=== PATIENT | male | born 1965 ===

== ENCOUNTER 2016-10-13 14:32 | Emergency (ER) | payer OTHER ==
[2016-10-13 14:55] VITALS: BP 159/99; PULSE 100; RESP 16; TEMP 99.3; O2SAT 98
--- NOTE | 2016-10-13 16:35 | ED PDOC ---
HPI: Skin/Bite Injury Time Seen by Provider: 10/13/16 15:05 Chief Complaint (Nursing): Abnormal Skin Integrity Chief Complaint (Provider): Rash History Per: Patient, Risk Analyst (Shelly Fowler [id number]) History/Exam Limitations: no limitations Onset/Duration Of Symptoms: Days (3) Current Symptoms Are (Timing): Still Present Quality Of Symptoms: Painful, Itching Severity: Moderate Additional Complaint(s): Jose Lima is a 50 y/o male presenting to the ER on 10/13/2016 with a diffuse rash that has been ongoing for three days. Rash, which is describes as pruritic and painful after itching it, and notes it is associated with a tactile fever and headache that was gradual in onset. Patient states this morning he woke up with throat pain, which prompted him to seek medical attention. Patient denies any known history of Chicken Pox, exposure to new allergens, food, lotions, soaps, or detergents. Patient has not taken any medications for his symptoms prior to his arrival. Past Medical History Reviewed: Historical Data (Social), Nursing Documentation, Vital Signs Vital Signs: Last Vital Signs Temp 99.3 F 10/13/16 14:53 Pulse 100 H 10/13/16 14:53 Resp 16 10/13/16 14:53 BP 159/99 H 10/13/16 14:53 Pulse Ox 98 10/13/16 17:21 - Medical History PMH: No Chronic Diseases - Surgical History Surgical History: No Surg Hx - Family History Family History: States: Unknown Family Hx - Social History Current smoker - smoking cessation education provided: No Alcohol: None Drugs: Denies - Home Medications Home Medications: Ambulatory Orders Medication Instructions Recorded Acetaminophen [Tylenol 325mg tab] 975 mg PO TID #20 tab 10/13/16 DiphenhydrAMINE [Benadryl] 25 mg PO QID #25 cap 10/13/16 Ibuprofen [Motrin Tab] 600 mg PO TID #20 tab 10/13/16 - Allergies Allergies/Adverse Reactions: Allergies Allergy/AdvReac Type Severity Reaction Status Date / Time No Known Allergies Allergy Verified 10/13/16 14:52 Review of Systems ROS Statement: Except As Marked, All Systems Reviewed And Found Negative Constitutional: Positive for: Fever ENT: Positive for: Throat Pain Skin: Positive for: Rash Physical Exam - Reviewed Nursing Documentation Reviewed: Yes Vital Signs Reviewed: Yes - Physical Exam Appears: Positive for: Non-toxic, No Acute Distress Head Exam: Positive for: ATRAUMATIC, NORMOCEPHALIC Skin: Positive for: Rash (blanchable erythematous papular rash from head to trunk, minimal on bilat extremities, no petechiae, no purpura, no ulcers noted ) Eye Exam: Positive for: Normal appearance, EOMI, PERRL ENT: Positive for: Normal ENT Inspection, Pharyngeal Erythema (w/ ulcers on tonsils bilat ) Neck: Positive for: Normal, Painless ROM, Supple Cardiovascular/Chest: Positive for: Regular Rate, Rhythm. Negative for: Murmur Respiratory: Positive for: Normal Breath Sounds. Negative for: Respiratory Distress Extremity: Positive for: Normal ROM. Negative for: Deformity, Swelling Neurologic/Psych: Positive for: Alert, Oriented. Negative for: Motor/Sensory Deficits - ECG O2 Sat by Pulse Oximetry: 98 Pulse Ox Interpretation: Normal Medical Decision Making Medical Decision Makin:05 Initial Impression- 50 y/o male with diffuse rash Initial Plan- * Benadryl 25 mg PO * Ibuprofen 600 mg PO Case discussed with Dr. May, ED attending, who evaluated patient at bedside and agrees likely secondary to viral infection (possible varicella). On reevaluation, patient denies any headache, but notes some persistent pruritis. Patient advised of diagnosis, and advised to follow up with clinic, and return to the ED for any worsening or change in symptoms. Documented by Randall Cortes, acting as a scribe for Enriqueta Ayala PA-C All medical record entries made by the Scribe were at my direction and personally dictated by me. I have reviewed the chart and agree that the record accurately reflects my personal performance of the history, physical exam, medical decision making, and the department course for this patient. I have also personally directed, reviewed, and agree with the discharge instructions and disposition. Disposition - Clinical Impression Clinical Impression: Skin rash, Chicken pox, Pharyngitis, Headache - Patient ED Disposition Is Patient to be Admitted: No Counseled Patient/Family Regarding: Diagnosis, Need For Followup, Rx Given - Disposition Referrals: [facility] [Outside] Disposition: Routine/Home Disposition Time: 17:15 Condition: STABLE Additional Instructions: Take Tylenol/Ibuprofen as prescribed. May take Benadryl for itching. Rash is contagious, therefore limit contact with others. F/u with clinic as [facility] as advised. Return for any worsening of symptoms, neck pain, or worsening of headache or rash. Prescriptions: Acetaminophen [Tylenol 325mg tab] 975 mg PO TID #20 tab DiphenhydrAMINE [Benadryl] 25 mg PO QID #25 cap Ibuprofen [Motrin Tab] 600 mg PO TID #20 tab Instructions: Chickenpox (ED), Pharyngitis (ED), Acute Rash (ED) Forms: [facility] (Estonian) Print Language: URDU
== END 2016-10-13 17:45 | disposition home or self-care (01) ==
LOC: H.ER 14:32
DX: B01.9 Varicella without complication (principal); J02.9 Acute pharyngitis, unspecified